=== PATIENT | female | born 1970 ===

== ENCOUNTER 2024-07-18 06:20 | Day surgery (SDC) | payer OTHER ==
[2024-07-18] MEDS ORDERED: DIPHENHYDRAMINE HCL 50 MG/ML VIAL 1ML IV ONE (11:15)
[2024-07-18] MEDS ORDERED: fentaNYL CITRATE 50 MCG/ML AMPUL IV PUSH ONE (11:15)
[2024-07-18] MEDS ORDERED: MIDAZOLAM HCL 2 MG/2 ML VIAL IV ONE (11:15)
== END 2024-07-18 12:30 | disposition home or self-care (01) ==
LOC: AMB-ENDOS 06:20
PROVIDERS: ATTEND Colon & Rectal Surgery
DX: K62.1 Rectal polyp (principal); K62.5 Hemorrhage of anus and rectum; K63.5 Polyp of colon